=== PATIENT | female | born 2000 | race Caucasian/White ===

== ENCOUNTER → 2020-12-11 | Outpatient (CLI) | payer OTHER ==
--- NOTE | 2020-12-11 17:31 | Diagnostic Imaging Report ---
EXAM: OB ultrasound, complete. DATE: December 11, 2020. COMPARISON: None. INDICATION: 20-year-old female, supervision of otherwise normal . FINDINGS: Multiple grayscale sonographic images were obtained of the gravid uterus. Overview: Within the uterus there is a single living gestation in cephalic position. There is positive movement and heart motion. heart rate was identified at 140 beats per minute. The amnionic fluid volume is objectively normal. The placenta is posterior and measures approximately 2.8 cm from the cervical os. The cervical length is not well demonstrated. growth parameters are summarized in detail on the accompanying separate chart. The approximate mean gestational age by today's ultrasound measurements is 19 weeks 6 days +/- 1 week variability. Estimated weight based on today's measurements is 294 g. anatomic survey: There is no ventriculomegaly (the lateral ventricle measures 4.8 mm) the cerebellum, cavum septum pellucidum, falx, and cisterna magna are identified. The nuchal skin fold is approximately 8 mm which is within normal limits. Longitudinal and transverse images of the spine appear unremarkable. There is visualization of the stomach, kidneys and urinary bladder. There is a normal four-chamber view of the heart. There is a three-vessel cord with an unremarkable insertion into the abdominal wall. 4 extremities are seen. The upper lip is seen. IMPRESSION: 1. Single living intrauterine with approximate mean gestational age of 19 weeks 6 days +/- 1 week. 2. Unremarkable anatomic survey. Biometrical measurements are as follows: Biparietal 4.77 cm, age 20 weeks 3 days. Head circumference 17.46 cm, age 20 weeks 0 days. Abdominal circumference 13.98 cm, age 19 weeks 3 days. Femur length 3.03 cm, age 19 weeks 3 days. Sonographic estimate age: 19 weeks 6 days. Sonographic estimated date of delivery: 05/01/2021. Estimated Weight: 294 gm (+/- 43 gm). LMP percentile: 56%. heart rate: 142 beats per minute. number: 1 of 1. Dictated by: Dictated on workstation # [id number]
== END ==
LOC: RAD 15:15
PROVIDERS: ATTEND Obstetrics & Gynecology
DX: Z34.92 Encounter for supervision of normal pregnancy, unspecified, second trimester (principal); Z3A.19 19 weeks gestation of pregnancy
CPT/HCPCS: 76805

== ENCOUNTER → 2021-03-03 | Outpatient (CLI) | payer OTHER ==
--- NOTE | 2021-03-03 11:08 | Diagnostic Imaging Report ---
INDICATION: Low lying placenta, followup. Correlation is made with prior ultrasound from 12/11/2020. There is a single live fetus in a breech presentation. heart rate was recorded at 127 bpm. Placenta is posterior. The placenta is no longer low lying in position. Placental tip to the internal cervical os is approximately 9 cm. Amniotic fluid index is 17.3 cm. Cervical length is 3.7 cm. IMPRESSION: Unremarkable limited obstetrical ultrasound. The placenta is no longer in a low-lying position. Dictated by: Dictated on workstation # [id number]
== END ==
LOC: RAD 10:00
PROVIDERS: ATTEND Obstetrics & Gynecology
DX: O44.42 Low lying placenta NOS or without hemorrhage, second trimester (principal); Z3A.00 Weeks of gestation of pregnancy not specified
CPT/HCPCS: 76816

== ENCOUNTER → 2021-04-01 | Outpatient (CLI) | payer OTHER ==
[2021-04-01 16:56] LABS: URINE CREATININE FOR RATIO 67 MG/DL (30-125)
[2021-04-01 16:57] LABS: URINE PROTEIN FOR RATIO ONLY < 6 MG/DL (6-12)
== END ==
LOC: LABNPT 16:42
PROVIDERS: ATTEND Nurse Practitioner Women's Health
DX: R03.0 Elevated blood-pressure reading, without diagnosis of hypertension (principal)
CPT/HCPCS: 82570; 84156

== ENCOUNTER → 2021-04-14 | Outpatient (CLI) | payer OTHER, MEDICAID ==
--- NOTE | 2021-04-14 17:58 | Diagnostic Imaging Report ---
INDICATION: patient, history of breech presentation. TECHNIQUE: Multiple real-time grayscale images were obtained over the gravid uterus. COMPARISON: Comparison made to prior study of 12/11/2020. FINDINGS: A single live intrauterine fetus is seen measuring 38 weeks 2 days in size. The fetus is in breech presentation at this time. Placenta is posterior with no evidence of previa. Amniotic fluid index is 8.5 cm. heart rate is 142 beats per minute. Cervical length is 4.8 cm. Maternal adnexa could not be visualized. survey was not performed as part of this study. Biometrical measurements are as follows: Biparietal 9.12 cm, age 37 weeks 0 days. Head circumference 35.26 cm, age 41 weeks 2 days. Abdominal circumference 33.32 cm, age 37 weeks 2 days. Femur length 7.26 cm, age 37 weeks 2 days. Sonographic estimate age: 38 weeks 2 days. Sonographic estimated date of delivery: 04/26/2021. Estimated Weight: 3258 gm (+/- 476 gm). LMP percentile: 72%. heart rate: 142 beats per minute. number: 1 of 1. IMPRESSION: Single live intrauterine fetus measuring 38 weeks 2 days in size, in breech presentation. Cervical length is 4.8 cm. There has been normal interval growth compared to the prior study. Dictated by: Dictated on workstation # [id number]
== END ==
LOC: RAD 15:00
PROVIDERS: ATTEND Obstetrics & Gynecology
DX: O32.1XX9 Maternal care for breech presentation, other fetus (principal); Z3A.38 38 weeks gestation of pregnancy
CPT/HCPCS: 76805

== ENCOUNTER → 2021-04-16 | Outpatient (CLI) | payer OTHER, MEDICAID ==
[~2021-04-16] MED LIST: ACET-93 PO; DOCU100C37 PO; IBUP-844 PO; NORE0.3536 PO; OXC5T PO
[2021-04-16 15:37] LABS: URINE CREATININE FOR RATIO 20 MG/DL (30-125)
[2021-04-16 15:38] LABS: URINE PROTEIN FOR RATIO ONLY < 6 MG/DL (6-12)
== END ==
LOC: LABNPT 15:18
PROVIDERS: ATTEND Obstetrics & Gynecology
DX: R03.0 Elevated blood-pressure reading, without diagnosis of hypertension (principal)
CPT/HCPCS: 82570; 84156

== ENCOUNTER 2021-04-18 11:05 | Inpatient (IN) | payer OTHER, MEDICAID ==
[~2021-04-18] VITALS: Ht 160 cm; Wt 76.7 kg
[2021-04-18 12:15] LABS: BASOPHILS # (AUTO) 0.1 10^3/uL (0.0-0.1); BASOPHILS % (AUTO) 0 % (0-10); EOSINOPHILS % (AUTO) 0 % (0-10); HEMATOCRIT 40 % (35-52); HEMOGLOBIN 12.9 g/dL (11.5-16.0); LYMPHOCYTES # (AUTO) 1.6 10^3/uL (1.0-4.0); LYMPHOCYTES % (AUTO) 10 % (12-44); MEAN CORPUSCULAR HEMOGLOBIN 29 pg (25-34); MEAN CORPUSCULAR HGB CONC 33 g/dL (32-36); MEAN CORPUSCULAR VOLUME 88 fL (80-99); MEAN PLATELET VOLUME 11.5 fL (9.0-12.2); MONOCYTES # (AUTO) 1.1 10^3/uL (0.0-1.0); MONOCYTES % (AUTO) 7 % (0-12); NEUTROPHILS # (AUTO) 13.5 10^3/uL (1.8-7.8); NEUTROPHILS % (AUTO) 82 % (42-75); PLATELET COUNT 178 10^3/uL (130-400); WHITE BLOOD COUNT 16.4 10^3/uL (4.3-11.0)
[2021-04-18] MEDS ORDERED: METOCLOPRAMIDE INJ 10 MG/2 ML (REGLAN) IV ONE (12:15)
[2021-04-18] MEDS ORDERED: CITRIC ACID/SOB CIT (BICITRA) 30 ML UDC PO ONE (12:15)
[2021-04-18] MEDS ORDERED: CATHETER FLUSH 10 ML SYR IV PRN (12:15)
[2021-04-18] MEDS ORDERED: LACTATED RINGERS 1,000 ML IV PRN ×2 (12:15)
[2021-04-18] MEDS ORDERED: METOCLOPRAMIDE INJ 10 MG/2 ML (REGLAN) ONE (12:17)
[2021-04-18] MEDS ORDERED: CITRIC ACID/SOB CIT (BICITRA) 30 ML UDC ONE (12:17)
[2021-04-18] MEDS ORDERED: FAMOTIDINE 20MG/2ML IV (PEPCID) ONE (12:17)
[2021-04-18] MEDS ORDERED: LACTATED RINGERS 1,000 ML IV ONE (12:17)
--- NOTE | 2021-04-18 12:26 | History & Physical-OB ---
OB - Chief Complaint & HPI Date/Time Date of Admission: Date of Admission: Apr 18, 2021 at 11:05 Date seen by a Provider: Apr 17, 2021 Time Seen by a Provider: 17:00 Chief Complaint/History OB-Reason for Admission/Chief: Medical Complication (preeclampsia) Hx : 1 Hx Para: 0 Expected Date of Delivery: May 05, 2021 Gestational Age in Weeks: 37 Gestational Age in Days: 4 Other reason for admission: Patient has been seen in the clinic for increasing blood pressures. BP on 04/17/2021 were 140/102 and 154/96 with increased edema, 2 lbs weight gain in 24 hours and hyperreflexia. In addition, fetus is breech. Due to blood pressures and relatively low JAMIE (8) and patient choice, we opted to proceed with primary section rather than external cephalic version. PIH labs on 04/16/2021 were wnl and PC ratio was not done due to no protein in urine. Admission Nurse Assessment Rev: Yes History of Labs O+/- HBsAg - HIV - Hep C - RUB I VDRL NR GBS _ Other otherwise uncomplicated. Peds - [place] Allergies and Home Medications Allergies Coded Allergies: Penicillins (Verified Allergy, Unknown, rash, 04/18/21) Patient Home Medication List Home Medication List Reviewed: Yes OB - History Hx of Present Ultrasounds: Normal mid trimester US Obstetrical Complications: Gestational Hypertension Medical Complications: None Information Induced Hypertension: Yes Maternal Gestational Diabetes: No Hemorrhage: No Obstetrical History Hx : 1 Hx Para: 0 Hx # Term Pregnancies: 0 Hx # Pregnancies: 0 Number of Living Children: 0 Hx Total # of Abortions (Spona: 0 Hx Multiple Gestation: No Hx Ectopic : No Hx Complication: No Hx Induced Hypertens: No Hx Maternal Gestational Diabet: No Hx Hemorrhage: No Patient Past Medical History NC Social History/Family History Alcohol Use: Denies Use Recreational Drug Use: No Smoking Cessation: Former smoker Immunizations Influenza Vaccine Up-to-Date: Yes; Up-to-Date Hepatitis A: Yes Hepatitis B: Yes Tetanus Booster (TDap): Less than 5yrs (01/2021) Rubella: immune RPR/VDRL: Negative GBS Status: Negative HBsAG: Negative OB - Admission Exam Physical Exam Heart: Rhythm Normal Lungs: Crackles Abdomen: Gravid Extremities: Edema Reflexes: Hyperreflexia Present Cervical Dilatation: other (not examined) Heart Rate: 140's Accelerations: Accelerations Present Decelerations: No Decelerations Short Term Variability: Present Alf Variability: Average (6-25) Contractions on Admission: None Labs Laboratory Tests Test 04/18/21 11:35 Range/Units OB - Assessment/Plan/Diagnosis Assessment Assessment: section Admission Dx 37 week gestation breech presentation gestational hypertension/preeclampsia Admission Status: Inpatient Order (span 2 midnights) Reason for Inpatient Admission: section Plan Plan: Section (Plan primary section. Risk of bleeding, infection, injury to bowel, bladder and ureter, surrounding tissues and fetus explained. Also there are risks associated with anesthesia and DVT/PE. Has signed apropriate consents. Will use prophylactic antibtiotics and SCD. ASHLEY Smallwood DO Apr 18, 2021 12:26
[2021-04-18] MEDS ORDERED: BUPIVACAINE 0.5% 30 ML (SENSORCAINE) VIAL ONE (12:34)
[2021-04-18] MEDS ORDERED: fentaNYL INJ 100 MCG/2 ML AMP ONE (12:34)
[2021-04-18 12:36] LABS: LYMPHOCYTES % (MANUAL) 12 %; MONOCYTES % (MANUAL) 7 %; NEUTROPHILS % (MANUAL) 81 %; RBC MORPH NORMAL
[2021-04-18] MEDS ORDERED: ceFAZolin 2 GM IV Premixed 50 ML ONE (12:43)
[2021-04-18] MEDS ORDERED: ceFAZolin 2 GM IV Premixed 50 ML IV ONE (12:45)
[2021-04-18 12:54] LABS: ALBUMIN 3.3 GM/DL (3.2-4.5); BILIRUBIN,TOTAL 0.4 MG/DL (0.1-1.0); CALCIUM 8.6 MG/DL (8.5-10.1); CREATININE SERUM 0.6 MG/DL (0.60-1.30); POTASSIUM 3.7 MMOL/L (3.6-5.0); TOTAL PROTEIN 6.2 GM/DL (6.4-8.2); URIC ACID 4.8 MG/DL (2.6-7.2)
[2021-04-18 13:19] LABS: BILIRUBIN,URINE NEGATIVE (NEGATIVE); CLARITY,URINE CLEAR; COLOR,URINE YELLOW; GLUCOSE, URINE (UA) NEGATIVE (NEGATIVE); KETONES,URINE NEGATIVE (NEGATIVE); LEUKOCYTE ESTERASE ,URINE NEGATIVE (NEGATIVE); NITRITE,URINE NEGATIVE (NEGATIVE); PROTEIN,URINE NEGATIVE (NEGATIVE)
[2021-04-18 13:24] LABS: URINE CREATININE FOR RATIO 56 MG/DL (30-125); URINE PROTEIN FOR RATIO ONLY < 6 MG/DL (6-12)
[2021-04-18 13:36] LABS: BACTERIA,URINE TRACE /HPF; WBC,URINE 0-2 /HPF
[2021-04-18] MEDS ORDERED: MEASLES,MUMPS,RUBELLA 1 EA INJ SC SCH (14:00)
[2021-04-18] MEDS ORDERED: TETANUS,DIPTH,PERTUSS P/F (BOOSTRIX) 0.5 ML VIAL IM SCH (14:00)
[2021-04-18] MEDS ORDERED: NALOXONE 0.4 MG/ML 1 ML (NARCAN) VIAL IV PRN (14:00)
[2021-04-18] MEDS ORDERED: OXYTOCIN PRE-MIX DRIP 500 ML IV SCH (14:00)
[2021-04-18] MEDS ORDERED: PHENYLEPHRINE 100 MCG/ML 10 ML (ANESTHESIA) SYR ONE (14:00)
[2021-04-18 14:10] VITALS: BP 119/74
--- NOTE | 2021-04-18 14:16 | Cesarean Section Operative ---
Procedure Procedure Note Pre-operative Diagnosis: Sanam Lucas is a 20 /Para 1 / 0, Gestational Age 37 4/7 weeks, gestational hypertension/preeclampsia, breech presentation Post-operative Diagnosis: same Procedure: Primary low transverse section Physician: ASHLEY TATE Estimated blood loss: 500 mL Disposition: stable Findings: Viable male , Apgars 4/9, weight 6#15ounces, intact placenta, 3vc, normal appearing uterus, tubes, and ovaries. Indications:Sanam Lucas is a 20 /Para 1 / 0,Gestational Age 37 4/7 weeks, gestational hypertension/preeclampsia, breech presentation We had previously discussed the possibility of external cephalic version. However, US at 36 weeks showed JAMIE of 8 and with worsening elevations in blood pressure, and maternal choice, the decision was made to not recommend ECV but instead proceed with primary section for breech presentation. Procedure Details: The patient was seen in pre-op and the procedure was discussed with the patient in full, including the risks, benefits, and alternatives. All questions were answered. The patient was taken to the operating room and a time out was performed, verifying patient and procedure. After spinal anesthesia was placed by our anesthesia colleagues, the patient was placed in the dorsal supine with leftward tilt for uterine displacement.~ Her abdomen was then prepped and draped in the typical sterile fashion. A Pfannenstiel skin incision was made using a scalpel and carried down through the underlying fascia. The fascia was incised in the midline and tented up using Irena clamps. On both the inferior and superior fascia side the rectus muscle was dissected off bluntly and sharply using Torres scissors. The peritoneum was identified and entered bluntly in the midline. This was then stretched laterally using manual strength. After entering the abdominal cavity and confirming lack of intraperitoneal adhesions, a large Nehemias retractor was placed and the lower uterine segment was visualized. A scalpel was utilized to make a low transverse uterine incision. This was extended laterally with bandage rosa. Amniotomy was performed with an Allis clamp with return of minimal amount of clear fluid. The 's left hip was presenting and was in alex breech presentation. The left leg was brought to the incision with assistance of Pinard's maneuver to allow the knee to bend and the leg be delivered. The right leg was then delivered in similar fashion. The baby was then delivered up to the level of scapulae and then rotated to allow delivery of the arms. However, the arms were extended over the head so I gently rotated the to allow flexion of the was antecubital space to allow the arms to come across the chest to be delivered. I then delivered the head with assistance of the Redamiji-Nlrzfnc-Bsbg maneuver to keep the head flexed forward. Mouth and nares were suctioned with bulb suction. After the umbilical cord was clamped and cut, the was handed off to the pediatric staff. A sample of cord blood was then obtained. The placenta was delivered intact via uterine massage. The uterus was cleared of all clots and debris. The uterine incision was closed using 0 PDS in a running locked fashion. A second imbricated layer was placed using 0 Vicryl in a running fashion as well. The bilateral tubes and ovaries appeared normal. The abdominal gutters were cleared of all clots and debris. A final check of the uterine incision showed it to be hemostatic. The peritoneum was closed using 3-0 Vicryl in a running fashion. The fascia was closed with 0 Vicryl in a running fashion. The subcutaneous space was hemostatic, and irrigated. The subcutaneous space was closed with 0 Plain in several single interrupted stitches. The skin was then closed using 4-0 Monocryl in a running subcuticular fashion. The skin edges were reapproximated together and were hemostatic. A pressure dressing was applied. All sponge, lap and needle counts were correct at the end of the procedure per nursing. Vitals - Labs Labs Laboratory Tests 04/18/21 11:20: Urine Color YELLOW, Urine Clarity CLEAR, Urine pH 6.0, Urine Specific [place] 1.020, Urine Protein NEGATIVE, Urine Glucose (UA) NEGATIVE, Urine Ketones NEGATIVE, Urine Nitrite NEGATIVE, Urine Bilirubin NEGATIVE, Urine Urobilinogen 0.2, Urine Leukocyte Esterase NEGATIVE, Urine RBC (Auto) NEGATIVE, Urine RBC NONE, Urine WBC 0-2, Urine Squamous Epithelial Cells 2-5, Urine Crystals NONE, Urine Bacteria TRACE, Urine Casts NONE, Urine Mucus SMALLH, Urine Culture Indicated NO 04/18/21 11:35: Urine Protein < 6L, White Blood Count 16.4H, Red Blood Count 4.48, Hemoglobin 12.9, Hematocrit 40, Mean Corpuscular Volume 88, Mean Corpuscular Hemoglobin 29, Mean Corpuscular Hemoglobin Concent 33, Red Cell Distribution Width 13.3, Platelet Count 178, Mean Platelet Volume 11.5, Immature Granulocyte % (Auto) 1, Neutrophils (%) (Auto) 82H, Lymphocytes (%) (Auto) 10L, Monocytes (%) (Auto) 7, Eosinophils (%) (Auto) 0, Basophils (%) (Auto) 0, Neutrophils # (Auto) 13.5H, Lymphocytes # (Auto) 1.6, Monocytes # (Auto) 1.1H, Eosinophils # (Auto) 0.0, Basophils # (Auto) 0.1, Immature Granulocyte # (Auto) 0.2H, Neutrophils % (Manual) 81, Lymphocytes % (Manual) 12, Monocytes % (Manual) 7, Blood Morphology Comment NORMAL, Urine Creatinine 56, Urine Protein/Creatinine Ratio , Sodium Level 137, Potassium Level 3.7, Chloride Level 111H, Carbon Dioxide Level 18L, Anion Gap 8, Blood Urea Nitrogen 5L, Creatinine 0.60, Estimat Glomerular Filtration Rate 130, BUN/Creatinine Ratio 8, Glucose Level 76, Uric Acid 4.8, Calcium Level 8.6, Corrected Calcium 9.2, Total Bilirubin 0.4, Aspartate Amino Transf (AST/SGOT) 15, Alanine Aminotransferase (ALT/SGPT) 9, Alkaline Phosphatase 210H, Lactate Dehydrogenase 198, Total Protein 6.2L, Albumin 3.3 ASHLEY TATE DO Apr 18, 2021 14:16
[2021-04-18 14:25] VITALS: BP 133/85
[2021-04-18 14:40] VITALS: BP 133/87
[2021-04-18] MEDS ORDERED: KETOROLAC 30 MG/ML VIAL ONE (14:44)
[2021-04-18] MEDS: KETOROLAC 30 MG/ML VIAL IV SCH ×2 (14:49→20:52)
[2021-04-18 14:55] VITALS: BP 130/97
[2021-04-18] MEDS ORDERED: OXC5T PO ×2 (14:56)
[2021-04-18] MEDS ORDERED: DOCU100C37 PO ×2 (14:56)
[2021-04-18] MEDS ORDERED: IBUP-844 PO ×2 (14:56)
[2021-04-18] MEDS ORDERED: ACET-93 PO ×2 (14:56)
--- NOTE | 2021-04-18 15:00 | Discharge Inst-Women's Service ---
Discharge Inst-Women's Serv Depart Medication/Instructions New, Converted or Re-Newed RX: Transmitted to Pharmacy Instructions nothing in vagina for 4 weeks no driving until not requiring pain medication no lifting over 25 lbs Final Diagnosis 37 week gestation mild preeclampsia breech presentation Problems Reviewed?: Yes Consults/Follow Up Additional Follow Up: Yes (1 week for incision check and 6 weeks post ) Activity Activity: Activity as Tolerated Driving Instructions: No Driving for 1 Week NO SMOKING: NO SMOKING Nothing Inside Vagina: No Douching, No Java, No Tampons Diet Discharge Diet: No Restrictions Symptoms to Report to DrImtiaz: Swelling Increased, Bleeding Excessive, Pain Increased, Fever Over 101 Degrees F, Vaginal Bleeding Increase, Cramps in Feet or Legs, Vaginal Discharge Foul For Any Problems or Questions: Contact Your Physician Skin/Wound Care Infection Signs and Symptoms: Increased Redness, Foul Odor of Wound, Increased Drainage, Skin Itchy or Has a Rash, Increased Swelling, Temperature Above 101 F Operative Area Clean and Dry: Keep Incision Clean/Dry Stitches/Shine/Dermabond: Dermabond Bathing Instructions: ASHLEY Flores DO Apr 18, 2021 15:00
[2021-04-18] MEDS: CATHETER FLUSH 10 ML SYR IV SCH ×2 (15:30→20:52)
[2021-04-18 16:44] VITALS: BP 133/73
[2021-04-18] MEDS: ACETAMINOPHEN 500 MG TAB (TYLENOL) PO SCH (17:46)
[2021-04-18 20:52] VITALS: BP 141/79
[2021-04-18] MEDS: DOCUSATE SODIUM 100 MG (COLACE) CAP PO SCH (20:52)
[2021-04-18] MEDS ORDERED: DOCUSATE SODIUM 100 MG (COLACE) CAP PO SCH (21:00)
[2021-04-19 00:55] VITALS: BP 136/83
[2021-04-19] MEDS: ACETAMINOPHEN 500 MG TAB (TYLENOL) PO SCH ×3 (00:55→16:12)
[2021-04-19 04:32] VITALS: BP 118/66
[2021-04-19] MEDS: KETOROLAC 30 MG/ML VIAL IV SCH ×2 (04:32→09:41)
[2021-04-19] MEDS: CATHETER FLUSH 10 ML SYR IV SCH (04:32)
[2021-04-19 05:28] LABS: BASOPHILS # (AUTO) 0.1 10^3/uL (0.0-0.1); BASOPHILS % (AUTO) 0 % (0-10); EOSINOPHILS # (AUTO) 0.1 10^3/uL (0.0-0.3); EOSINOPHILS % (AUTO) 1 % (0-10); HEMATOCRIT 37 % (35-52); HEMOGLOBIN 11.9 g/dL (11.5-16.0); LYMPHOCYTES # (AUTO) 1.8 10^3/uL (1.0-4.0); LYMPHOCYTES % (AUTO) 12 % (12-44); MEAN CORPUSCULAR HEMOGLOBIN 29 pg (25-34); MEAN CORPUSCULAR HGB CONC 32 g/dL (32-36); MEAN CORPUSCULAR VOLUME 90 fL (80-99); MEAN PLATELET VOLUME 11.3 fL (9.0-12.2); MONOCYTES # (AUTO) 1.6 10^3/uL (0.0-1.0); MONOCYTES % (AUTO) 11 % (0-12); NEUTROPHILS # (AUTO) 11.2 10^3/uL (1.8-7.8); NEUTROPHILS % (AUTO) 75 % (42-75); PLATELET COUNT 134 10^3/uL (130-400); WHITE BLOOD COUNT 14.8 10^3/uL (4.3-11.0)
[2021-04-19 08:30] VITALS: BP 139/66
[2021-04-19] MEDS: FERROUS SULF 325 MG (IRON) TAB PO SCH (08:52)
[2021-04-19] MEDS: DOCUSATE SODIUM 100 MG (COLACE) CAP PO SCH ×2 (08:52→21:49)
--- NOTE | 2021-04-19 10:43 | Postpartum Progress Note ---
Post Op Post-operative Day #1 Subjective: Patient is without complaints. Ambulating, voiding after chun removed. Tolerating a regular diet without nausea or vomiting. Normal lochia. Pain is well controlled with oral pain medications. Passing flatus. . Denies any s/s of preE. Objective: VS - Last 72 Hours, by Label 04/18/21 04/18/21 04/18/21 04/18/21 14:10 14:25 14:40 14:55 Temp 36.8 36.5 36.7 36.7 Pulse 78 Resp 16 16 16 18 B/P (MAP) 119/74 (89) 133/85 (101) 133/87 (102) 130/97 (108) Pulse Ox 97 97 98 97 O2 Delivery Room Air Room Air Room Air Room Air 04/18/21 04/18/21 04/18/21 04/18/21 14:55 16:44 19:11 20:52 Temp 36.7 37.2 37.4 Pulse 75 72 Resp 16 18 18 B/P (MAP) 130/97 (108) 133/73 (93) 141/79 (99) Pulse Ox 97 97 98 97 O2 Delivery Room Air Room Air Room Air Room Air 04/19/21 04/19/21 00:55 04:32 Temp 36.4 36.8 Pulse 85 83 Resp 18 18 B/P (MAP) 136/83 (100) 118/66 (83) Pulse Ox 97 97 O2 Delivery Room Air Room Air BP range: 119-141/66-97. Will continue to monitor. Physical Exam: General - Alert and oriented, no apparent distress Abdomen - Soft, appropriately tender to palpation, non-distended, fundus firm at umbilicus Incision - Pfannenstiel incision is clean, dry and intact with skin glue; no erythema or induration, no drainage Extremities - no edema, negative Tuan's bilaterally Assessment: Post-operative day #1, status post primary low transverse section due to mild preeclampsia and breech presentation. She delivered a viable male infant without issues. Recovering well, hemodynamically stable Plan: Routine post-operative care. Mild PreE: Does note require MagSO4 for seizure ppx. BP range is 119-141/66-97, mostly in 130s/80s. She denies s/s of preE. VMI. Circ desired. . Heme: Preop hgb is 12.9 --> postop hgb 11.9. No s/s of anemia. Vitals are stable. Diet: Regular diet as tolerated. VTE prophylaxis: SCDs. Encourage ambulation. Contraception: Micronor pills. Appropriate instructions regarding usage and discontinuation reviewed. Plan for discharge tomorrow. Vitals - Labs Vital Signs - I&O Vital Signs Date Time Temp Pulse Resp B/P (MAP) Pulse Ox O2 Delivery O2 Flow Rate FiO2 04/19/21 04:32 36.8 83 18 118/66 (83) 97 Room Air 04/19/21 00:55 36.4 85 18 136/83 (100) 97 Room Air 04/18/21 20:52 37.4 72 18 141/79 (99) 97 Room Air 04/18/21 19:11 98 Room Air 04/18/21 16:44 37.2 75 18 133/73 (93) 97 Room Air 04/18/21 14:55 36.7 16 130/97 (108) 97 Room Air 04/18/21 14:55 36.7 78 18 130/97 (108) 97 Room Air 04/18/21 14:40 36.7 16 133/87 (102) 98 Room Air 04/18/21 14:25 36.5 16 133/85 (101) 97 Room Air 04/18/21 14:10 36.8 16 119/74 (89) 97 Room Air I & O 04/19/21 07:00 Intake Total 3150 ml Output Total 1475 ml Balance 1675 ml Labs Laboratory Tests 04/18/21 11:20: Urine Color YELLOW, Urine Clarity CLEAR, Urine pH 6.0, Urine Specific [place] 1.020, Urine Protein NEGATIVE, Urine Glucose (UA) NEGATIVE, Urine Ketones NEGATIVE, Urine Nitrite NEGATIVE, Urine Bilirubin NEGATIVE, Urine Urobilinogen 0.2, Urine Leukocyte Esterase NEGATIVE, Urine RBC (Auto) NEGATIVE, Urine RBC NONE, Urine WBC 0-2, Urine Squamous Epithelial Cells 2-5, Urine Crystals NONE, Urine Bacteria TRACE, Urine Casts NONE, Urine Mucus SMALLH, Urine Culture Indicated NO 04/18/21 11:35: Urine Protein < 6L, White Blood Count 16.4H, Red Blood Count 4.48, Hemoglobin 12.9, Hematocrit 40, Mean Corpuscular Volume 88, Mean Corpuscular Hemoglobin 29, Mean Corpuscular Hemoglobin Concent 33, Red Cell Distribution Width 13.3, Platelet Count 178, Mean Platelet Volume 11.5, Immature Granulocyte % (Auto) 1, Neutrophils (%) (Auto) 82H, Lymphocytes (%) (Auto) 10L, Monocytes (%) (Auto) 7, Eosinophils (%) (Auto) 0, Basophils (%) (Auto) 0, Neutrophils # (Auto) 13.5H, Lymphocytes # (Auto) 1.6, Monocytes # (Auto) 1.1H, Eosinophils # (Auto) 0.0, Basophils # (Auto) 0.1, Immature Granulocyte # (Auto) 0.2H, Neutrophils % (Manual) 81, Lymphocytes % (Manual) 12, Monocytes % (Manual) 7, Blood Morphology Comment NORMAL, Urine Creatinine 56, Urine Protein/Creatinine Ratio , Sodium Level 137, Potassium Level 3.7, Chloride Level 111H, Carbon Dioxide Level 18L, Anion Gap 8, Blood Urea Nitrogen 5L, Creatinine 0.60, Estimat Glomerular Filtration Rate 130, BUN/Creatinine Ratio 8, Glucose Level 76, Uric Acid 4.8, Calcium Level 8.6, Corrected Calcium 9.2, Total Bilirubin 0.4, Aspartate Amino Transf (AST/SGOT) 15, Alanine Aminotransferase (ALT/SGPT) 9, Alkaline Phosphatase 210H, Lactate Dehydrogenase 198, Total Protein 6.2L, Albumin 3.3 04/19/21 05:06: White Blood Count 14.8H, Red Blood Count 4.15, Hemoglobin 11.9, Hematocrit 37, Mean Corpuscular Volume 90, Mean Corpuscular Hemoglobin 29, Mean Corpuscular Hemoglobin Concent 32, Red Cell Distribution Width 13.4, Platelet Count 134, Mean Platelet Volume 11.3, Immature Granulocyte % (Auto) 1, Neutrophils (%) (Auto) 75, Lymphocytes (%) (Auto) 12, Monocytes (%) (Auto) 11, Eosinophils (%) (Auto) 1, Basophils (%) (Auto) 0, Neutrophils # (Auto) 11.2H, Lymphocytes # (Auto) 1.8, Monocytes # (Auto) 1.6H, Eosinophils # (Auto) 0.1, Basophils # (Auto) 0.1, Immature Granulocyte # (Auto) 0.1 SCOTT VILLAVICENCIO MD Apr 19, 2021 10:43
[2021-04-19] MEDS ORDERED: NORE0.3536 PO ×2 (10:46)
--- NOTE | 2021-04-19 11:47 | Anesthesia-Regional Post-Op ---
Regional Patient Condition Mental Status: Alert, Oriented x3 Circulation: Same as Pre-Op Headache: Absent Sensation: Full Recovery Motor Block: Absent Post Op Complications Complications None Follow Up Care/Instructions Patient Instructions None needed. Anesthesia/Patient Condition Patient is doing well, no complaints, stable vital signs, no apparent adverse anesthesia problems. No complications reported per nursing. [place] [facility] [place] Yes LUDIVINA PATRICK CRNA Apr 19, 2021 11:47
[2021-04-19] MEDS: IBUPROFEN 600 MG (MOTRIN) TAB PO SCH ×2 (16:13→21:49)
[2021-04-19 16:14] VITALS: BP 138/77
[2021-04-19] MEDS ORDERED: IBUPROFEN 600 MG (MOTRIN) TAB PO SCH (18:00)
[2021-04-19 20:54] VITALS: BP 137/74
[2021-04-20] MEDS: ACETAMINOPHEN 500 MG TAB (TYLENOL) PO SCH ×2 (00:04→09:21)
[2021-04-20] MEDS: IBUPROFEN 600 MG (MOTRIN) TAB PO SCH ×2 (03:53→09:20)
[2021-04-20 04:00] VITALS: BP 147/78
[2021-04-20] MEDS: DOCUSATE SODIUM 100 MG (COLACE) CAP PO SCH (09:20)
[2021-04-20] MEDS: FERROUS SULF 325 MG (IRON) TAB PO SCH (09:20)
[2021-04-20 09:23] VITALS: BP 131/75
--- NOTE | 2021-04-20 09:40 | Postpartum Progress Note ---
Post Op Post-operative Day #2 Subjective: Patient is without complaints. Ambulating, voiding after chun removed. Tolerating a regular diet without nausea or vomiting. Normal lochia. Pain is well controlled with oral pain medications. Passing flatus. Breasteeding. She denies MAK, blurry vision, Chest pain, SOB or RUQ abdominal pain. She anticipates discharge today. Objective: VS - Last 72 Hours, by Label 04/18/21 04/18/21 04/18/21 04/18/21 14:10 14:25 14:40 14:55 Temp 36.8 36.5 36.7 36.7 Pulse 78 Resp 16 16 16 18 B/P (MAP) 119/74 (89) 133/85 (101) 133/87 (102) 130/97 (108) Pulse Ox 97 97 98 97 O2 Delivery Room Air Room Air Room Air Room Air 04/18/21 04/18/21 04/18/21 04/18/21 14:55 16:44 19:11 20:52 Temp 36.7 37.2 37.4 Pulse 75 72 Resp 16 18 18 B/P (MAP) 130/97 (108) 133/73 (93) 141/79 (99) Pulse Ox 97 97 98 97 O2 Delivery Room Air Room Air Room Air Room Air 04/19/21 04/19/21 04/19/21 04/19/21 00:55 04:32 08:30 16:14 Temp 36.4 36.8 36.9 37.2 Pulse 85 83 88 96 Resp 18 18 18 18 B/P (MAP) 136/83 (100) 118/66 (83) 139/66 (90) 138/77 (97) Pulse Ox 97 97 96 O2 Delivery Room Air Room Air Room Air 04/19/21 04/20/21 04/20/21 20:54 04:00 09:23 Temp 37.0 36.6 37.2 Pulse 92 88 93 Resp 18 18 18 B/P (MAP) 137/74 (95) 147/78 (101) 131/75 (93) Pulse Ox 99 99 98 O2 Delivery Room Air Room Air Room Air BP range: 118-147/66-97; mostly in 130s/70s Physical Exam: General - Alert and oriented, no apparent distress Abdomen - Soft, appropriately tender to palpation, non-distended, fundus firm at umbilicus Incision - Pfannenstiel incision clean, dry and intact with skin glue; no erythema or induration, no drainage Extremities - no edema, negative Tuan's bilaterally Assessment: Post-operative day # 2, status post primary low transverse section due to mild PreE and breech presentation. Recovering well, hemodynamically stable Plan: Routine post-operative care. Mild PreE: Does note require MagSO4 for seizure ppx. BP range is 118-147/66-97; mostly in 130s/70s. She denies s/s of preE. VMI. Circ completed. . Heme: Preop hgb is 12.9 --> postop hgb 11.9. No s/s of anemia. Vitals are stable. Diet: Regular diet as tolerated. VTE prophylaxis: SCDs. Encourage ambulation. Contraception: Micronor pills. Appropriate instructions regarding usage and discontinuation reviewed. Plan for discharge today. Discharge instructions reviewed. Pt to return in 1 week for an incision and BP check. Vitals - Labs Vital Signs - I&O Vital Signs Date Time Temp Pulse Resp B/P (MAP) Pulse Ox O2 Delivery O2 Flow Rate FiO2 04/20/21 09:23 37.2 93 18 131/75 (93) 98 Room Air 04/20/21 04:00 36.6 88 18 147/78 (101) 99 Room Air 04/19/21 20:54 37.0 92 18 137/74 (95) 99 Room Air 04/19/21 16:14 37.2 96 18 138/77 (97) SCOTT VILLAVICENCIO MD Apr 20, 2021 09:40
--- NOTE | 2021-04-20 09:45 | Short Stay Summary ---
Discharge Summary Hospital Course Was the Problem List Reviewed?: Yes Final Diagnosis: care following section Hospital Course Date of Admission: Apr 18, 2021 at 11:05 Admission Diagnosis : Family Physician/Provider: Date of Discharge: 04/20/21 Discharge Diagnosis: care following section, Mild preeclampsia Hospital Course: Sanam Lucas is a 20 yo , s/p primary low transverse section at 37.4wga due to mild preeclampsia and breech presentation. She delivered a viable male infant, weighing 6#15 with APGARs of 4 and 9. She tolerated the procedure well and had an uneventful course. She was discharged home on POD#2 in stable condition, meeting all postoperative milestones. She did not require anti-hypertensive medications. She was and expressed interest in starting POPs prior to discharge. She was discharged home with plans for follow-up in 1 week for an incision check and a BP check. Labs and Pending Lab Test: Home Meds Active Ortho Micronor (Norethindrone) 0.35 Mg Tablet 0.35 Mg PO DAILY 30 Days Docusate Sodium 100 Mg Capsule 100 Mg PO BID Acetaminophen 500 Mg Tablet 1,000 Mg PO Q8HR Oxyir Tablet (Oxycodone HCl) 5 Mg Tab 5 Mg PO Q4HR PRN Ibu (Ibuprofen) 600 Mg Tablet 600 Mg PO Q6HR Assessment/Pt Instructions Please see hospital course. Discharge Instructions Discharge Diet: No Restrictions Discharge Physical Examination Allergies: Coded Allergies: Penicillins (Verified Allergy, Unknown, rash, 04/18/21) Discharge Summary Date of Admission Apr 18, 2021 at 11:05 Date of Discharge SCOTT VILLAVICENCIO MD Apr 20, 2021 09:45
== END 2021-04-20 12:00 | disposition home or self-care (01) | DRG 788 ==
LOC: LDRP 11:05
PROVIDERS: ADMIT Obstetrics & Gynecology; ATTEND Obstetrics & Gynecology
PROC: 10D00Z1 Extraction of Products of Conception, Low, Open Approach (ICD-10-PCS; principal; 2021-04-18 13:09)
DX: O32.1XX0 Maternal care for breech presentation, not applicable or unspecified (principal); O14.04 Mild to moderate pre-eclampsia, complicating childbirth; Z3A.37 37 weeks gestation of pregnancy; Z37.0 Single live birth
CPT/HCPCS: 36415; 80053; 81000; 82570; 83615; 84156; 84550; 85007; 85025; 85027; 86850; 86900; 86901; 94664